=== PATIENT | female | born 1970 ===

== ENCOUNTER 2022-03-02 05:56 | Day surgery (SDC) | payer OTHER ==
[~2022-03-02] VITALS: Ht 172.7 cm; Wt 88.5 kg
== END 2022-03-02 14:00 | disposition home or self-care (01) ==
LOC: CIR.AMB 05:56
PROVIDERS: ATTEND Colon & Rectal Surgery
DX: K64.1 Second degree hemorrhoids (principal); Z91.013 Allergy to seafood; Z88.8 Allergy status to other drugs, medicaments and biological substances; K57.30 Diverticulosis of large intestine without perforation or abscess without bleeding; Z20.822 Contact with and (suspected) exposure to COVID-19